=== PATIENT | male | born 1955 | race Caucasian/White ===

== ENCOUNTER 2019-02-21 09:08 | Day surgery (SDC) | payer OTHER ==
[2019-02-21] MEDS ORDERED: FENTAnyl 50 MCG/ML VIAL (11:49)
[2019-02-21] MEDS ORDERED: MIDAZOLAM 1 MG/ML 2 ML INJ ×2 (11:50)
== END 2019-02-21 15:09 | disposition home or self-care (01) ==
LOC: GIL 09:08
DX: Z12.11 Encounter for screening for malignant neoplasm of colon (principal); K64.8 Other hemorrhoids; D12.3 Benign neoplasm of transverse colon; K57.30 Diverticulosis of large intestine without perforation or abscess without bleeding; I10 Essential (primary) hypertension
CPT/HCPCS: 45380; 88305